=== PATIENT | male | born 1960 | race Caucasian/White ===

== ENCOUNTER 2021-09-13 07:01 | Outpatient (CLI) | payer OTHER, SELFPAY ==
--- NOTE | 2021-09-13 07:15 | MR_ITS ---
WS: [id number] MRI LEFT SHOULDER NONCONTRAST TECHNIQUE: Sagittal T2, coronal T1, T2 and proton density imaging. Axial gradient PDE imaging. CLINICAL INFORMATION: S46.219A - Strain of muscle, fascia and tendon of other p... COMPARISON: None. FINDINGS: Moderate degenerative arthritis at the AC joint with mild downsloping of the acromion. Slight subacro mial spurring. Narrowing of the subacromial space. Slight impingement on the distal supraspinatus. Perez praspinatus tendinopathy. Normal infraspinatus. Normal teres minor. High-grade full-thickness tear of the subscapularis tendon at the level of glenoh umeral joint. Associated tendon retraction. Laxity in the distal tendon fragment. Biceps tendon is ab sent from the proximal bicipital groove also presumably torn. This extends into the proximal intra-ar ticular biceps tendon. Mild degenerative fraying glenoid labrum. Degenerative bone marrow signal in t he humeral head and glenoid. Slight subchondral cystic change in the anterior inferior bony glenoid. MR/MR shoulder LT wo con* [id number] IMPRESSION: 1. High-grade complete tear of the subscapularis tendon at the level of glenoh umeral joint with mild proximal tendon retraction. Laxity involving the distal tendon fragment. 2. Biceps tendon absent from the bicipital groove also presumably torn. Tear e xtends to involve the intra-articular biceps tendon. 3. Moderate degenerative arthritis at the AC joint with mild downsloping acrom ion. Tendinopathy in the distal supraspinatus. 4. Rotator cuff is otherwise intact. 5. Small subcoracoid bursa effusion.
== END 2021-09-13 07:02 | disposition home or self-care (01) ==
LOC: RADSHAW 07:03
PROVIDERS: PCP Nurse Practitioner Family; Visit Provider Nurse Practitioner Family
DX: S46.812A Strain of other muscles, fascia and tendons at shoulder and upper arm level, left arm, initial encounter (principal); X58.XXXA Exposure to other specified factors, initial encounter; M19.012 Primary osteoarthritis, left shoulder; M25.412 Effusion, left shoulder
CPT/HCPCS: 73221

== ENCOUNTER → 2021-09-19 09:59 | Outpatient (BNVA) | payer OTHER, SELFPAY | PROVIDERS: PCP Nurse Practitioner Family; Referring Provider Nurse Practitioner Family; Visit Provider Orthopaedic Surgery | DX: M25.512 Pain in left shoulder (principal) | CPT/HCPCS: 73030 ==

== ENCOUNTER → 2021-09-22 08:35 | Outpatient (BNVA) | payer OTHER, SELFPAY | PROVIDERS: PCP Nurse Practitioner Family; Visit Provider Orthopaedic Surgery | DX: Z01.812 Encounter for preprocedural laboratory examination (principal); Z20.822 Contact with and (suspected) exposure to COVID-19 | CPT/HCPCS: 87635 ==

== ENCOUNTER 2021-09-29 08:02 | Day surgery (SDC) | payer OTHER, SELFPAY ==
[2021-09-28 14:51] VITALS: BMI 29.0
[2021-09-29] VITALS (9 sets, daily range): BP systolic 124–164; BP diastolic 86–97; PULSE 59–84; RESP 14–18; TEMP 36.3–36.6; O2SAT 92–98
[2021-09-29] MEDS: acetaminophen 500 mg Tablet 1000 MG PO (08:39)
[2021-09-29] MEDS: sodium chloride 0.9% 1,000 ML 30 ML IV (08:41)
--- NOTE | 2021-09-29 09:15 | P.ANESASSM_ITS ---
Pre-Anesthetic Assessment Pre-Anesthetic Assessment: Height/Weight: Height 1.85 m Weight 99.79 kg Temp Pulse Resp BP Pulse Ox 98 F 59 L 18 141/97 98 09/29/21 08:13 09/29/21 08:13 09/29/21 08:13 09/29/21 08:13 09/29/21 08:13 Preop Diagnosis: Rotator cuff tear Left shoulder Proposed Procedure: Operation Date: 09/29/21 10:10 Proposed Procedures p Open Rotator Cuff Repair [id number] M75.102(Left) - Carlos Acosta MD s Bicep Tenodesis(Left) - Carlos Acosta MD Familial anesthetic complications: none Last intake: Intake Last Liquid Date 09/28/21 Last Liquid Time 22:00 Last Solid Date 09/28/21 Last Solid Time 17:00 Social: Social History: Tobacco (chews) and No alcohol Exam: Pre-Anes Outpt Exam: alert, oriented x 3, clear to auscultation bilat erally and regular rate & rhythm Airway: Cervical ROM: WNL MP: 3 Dentition: Chipped Anesthetic Plan: ASA status: 2 Anesthesia: General and Regional (specify below) Risk of > 500 ml blood loss (7ml/kg in children): No Meds/Allergies Current Medications: Current Medications Generic Name Dose Route Start Last Admin Trade Name Freq PRN Reason Stop Dose Admin Sodium Chloride 1,000 mls @ 30 ml s/hr 09/29/21 08:15 09/29/21 08:41 Sodium Chloride 0.9% IV 09/30/21 08:14 30 mls/hr .Q24H YANETH Administration PFSH Anesthesia PFSH: Medical History Atypical chest pain Degenerative joint disease Dyslipidemia (high LDL; low HDL) Family history of COPD (chronic obstructive pulmonary disease) Family history of OK (myocardial infarction) Hx of chest pain Hx of hypercholesterolemia Hx of right bundle branch block Joint pain Tobacco abuse Surgical History H/O shoulder surgery bilat History of foot surgery left History of mandibular surgery Previous back surgery Family History Father CAD (coronary artery disease) at age 56 Lung disease Social History Smoking and tobacco status: never smoked Alcohol intake: never Current gender identity: Male Data Anesthesia Cardiac Studies: No Data to Display
--- NOTE | 2021-09-29 09:16 | ANES.PROC ---
Anesthesia Procedures Procedure/Date: 09/29/21 Nerve Block ^: Nerve Block 1: Main Anesthesia: general anesthesia Time Out Performed: Yes Consent: requested by attending/covering physician, from patient, risks and benefits reviewed and patient agrees to proceed Nerve block location: interscalene (L) Anesthesia monitors applied: pulse oximetry, EKG, BP cuff and oxygen Nerve block position: semi sitting Anesthetic Used: ropivicaine 0.5% and with decadron (4 mg) Amount of anesthesia used (mL): 20 Ultrasound used to: recognize landmarks, visualize and ID brachial plexus and visualize and ID interscalene groove Nerve Stimulator Used?: No Interscalene/Femoral BLK: 2 stimuplex 22 g needle used for position and inplane approach and visualize local anesthetic spread Injection: neg aspiration of heme Patient Tolerated Procedure: well Complications: none
--- NOTE | 2021-09-29 10:06 | W.PM.OPSUD ---
Surgery/Procedure H&P Update DATE OF PROCEDURE: September 29, 2021 DATE H&P PERFORMED: 09/19/21 H&P UPDATE INFORMATION: I have reviewed H&P completed within last 30 days PREOP DIAGNOSIS: Rotator cuff tear Left shoulder PLANNED PROCEDURE: Operation Date: 09/29/21 10:10 Proposed Procedures p Open Rotator Cuff Repair [id number] M75.102(Left) - Carlos Acosta MD s Bicep Tenodesis(Left) - Carlos Acosta MD
--- NOTE | 2021-09-29 12:27 | PM.OP ---
Operative Report Date of procedure: September 29, 2021 Pre-op Diagnosis: Rotator cuff tear left shoulder Post-op diagnosis: same Post-op Diagnosis: Tear left superior subscapularis Post-op Findings: Same Procedure Done: Open repair left subscapularis Implants: [employer]an [employer]hew Helicoil 5.5 mm Pathology: none sent Anesthesia: General and Epidural (Interscalene) Estimated blood loss (mL): 20 Complications: The patient had a tear of the superior half of his subscapularis tendon with medial and inferior retraction of the superior subscapularis. Condition: stable Disposition: PACU Procedure: Dwayne was taken to the operating room after he was given an interscalene block. He is prepped and draped in the beachchair position with his left anterior shoulder exposed. He was given 2 g of Ancef and 1 g of tranexamic acid. His shoulder was opened through the previous anterior scar. The deltopectoral interval was identified. The cephalic vein was absent. The interval was divided bringing us down to the coracoid. The conjoined tendon was identified scarred down to the anterior subscapularis and capsule and mobilized medially and laterally. This brought us down to the tearing of the superior rotator cuff. The superior lesser tuberosity was debrided back with a rongeur to vascular bone. A [employer]an [employer]hew Helicoil 5.5 mm anchor was placed in the superior footprint. Each limb of Ultratape were passed through the retracted leading edge of the subscapularis tendon and the suture passed centrally and just medial to the to. The sutures were secured bringing the subscapularis anteriorly and laterally back to the tuberosity. Each suture was then passed through the posterior supraspinatus tendon further closing the interval and reinforcing the repair. 3 additional Ultratape sutures were passed working lateral to medial reinforcing the repair and closing the most lateral rotator cuff interval. The shoulder was irrigated with saline. The deltopectoral interval was closed with 0 Vicryl. Subcutaneous tissues were closed with 2-0 Vicryl. The skin was closed with a running 4-0 Stratafix and Dermabond. Water impervious dressing was applied. The patient was extubated taken to recovery room in an abduction pillow.
--- NOTE | 2021-09-29 12:42 | SUR.PHASEI ---
PT AWAKE ALERT DENIES PAIN AND NAUSEA, FIRST ICE TO LT SHOULDER DRESSING D/I ULTRA SLING IN PLACE DISTAL HAND/FINGERS PINK WARM WITH CAP REFILL LESS THAN 3 SECONDS. IV PATENT PT HAD A INTERSCALENE BLOCK PRE SURGERY , PT ENCOURAGED TO COUGH AND DEEP BREATH NEEDED.
== END 2021-09-29 13:50 | disposition home or self-care (01) ==
PROVIDERS: PCP Nurse Practitioner Family; Visit Provider Orthopaedic Surgery
PROC: 0LQ20ZZ Repair Left Shoulder Tendon, Open Approach (ICD-10-PCS; CPT 23410; principal; 2021-09-29 10:10)
PROC: 0LQ20ZZ Repair Left Shoulder Tendon, Open Approach (ICD-10-PCS; CPT 23430; 2021-09-29 10:10)
DX: M25.512 Pain in left shoulder (principal); M75.102 Unspecified rotator cuff tear or rupture of left shoulder, not specified as traumatic; S46.812A Strain of other muscles, fascia and tendons at shoulder and upper arm level, left arm, initial encounter; Z98.890 Other specified postprocedural states; X50.0XXA Overexertion from strenuous movement or load, initial encounter; Y93.89 Activity, other specified
CPT/HCPCS: 23410; 64415; 76942; C1713; J0690; J1100; J2250; J2405; J2704; J2710; J2795; J3010; J3490; J7030

== ENCOUNTER → 2022-05-05 00:01 | Outpatient (BNVA) | payer OTHER, SELFPAY | PROVIDERS: PCP Nurse Practitioner Family; Visit Provider Nurse Practitioner Family | DX: E78.5 Hyperlipidemia, unspecified (principal); I10 Essential (primary) hypertension | CPT/HCPCS: 80053; 80061 ==